=== PATIENT | female | born 1950 | race Caucasian/White ===

== ENCOUNTER 2019-08-24 06:08 | Inpatient (IN) ==
[~2019-08-24 06:08] MED LIST: Ipratropium/Albuterol Neb 3 ML IH ONE; Vancomycin 1,000 MG, Sodium Chloride IRRigation 1,000 ML IR ONE
[2019-08-24] MEDS ORDERED: Clindamycin 900 MG/50 ML 900 MG/50 ML IV.SOLN IVPB ONE (06:27)
[2019-08-24] MEDS ORDERED: Ringers Solution, Lactated 1,000 ML IVC SCH ×2 (06:30→11:15)
[2019-08-24] MEDS ORDERED: Ondansetron 4 MG/2 ML VIAL ONE ×2 (06:52→07:26)
[2019-08-24] MEDS ORDERED: *HR* FentaNYL (PF) 100 MCG/2 ML VIAL ONE ×2 (06:52→07:30)
[2019-08-24] MEDS ORDERED: *HR* Propofol 200 MG/20 ML VIAL IVP ONE ×2 (06:52→09:44)
[2019-08-24] MEDS ORDERED: Lidocaine -MPF 2% 2 ML VIAL ONE (06:52)
[2019-08-24] MEDS ORDERED: Dexamethasone 4 MG/ML VIAL ONE ×2 (06:52→07:26)
[2019-08-24] MEDS ORDERED: *HR* Rocuronium Bromide 50 MG/5 ML VIAL ONE ×2 (06:58→07:26)
[2019-08-24] MEDS ORDERED: *HR* Succinylcholine 200 MG/10 ML VIAL IVP ONE (06:59)
[2019-08-24] MEDS ORDERED: Albuterol 2.5 MG/3 ML NEBULIZER IH PRN (07:09)
[2019-08-24] MEDS ORDERED: Heparin 1,000 UNITS/500 mL 1,500 ML ONE (07:14)
[2019-08-24] MEDS ORDERED: NiCARdipine 2.5 MG/10 ML Syringe IVPB ONE (07:22)
[2019-08-24] MEDS ORDERED: Vancomycin 1,000 MG VIAL ONE (07:25)
[2019-08-24] MEDS ORDERED: *HR* Etomidate 40 MG/20 ML VIAL IVP ONE (07:27)
[2019-08-24] MEDS ORDERED: *HR* Heparin 5,000 UNIT/ML VIAL ONE (07:27)
[2019-08-24] MEDS ORDERED: Heparin 1,000 UNITS/500 mL 500 ML ONE (07:27)
[2019-08-24] MEDS ORDERED: *HR* PHENYLEPHRINE 1,000 MCG/10 ML SYRINGE IVP ONE ×2 (07:27→10:23)
[2019-08-24] MEDS ORDERED: *HR* Midazolam HCl 5 MG/5 ML VIAL IVP ONE (07:30)
[2019-08-24 08:59] LABS: ABG Base Excess -2 mEq/L (-2 to 3); ABG Chloride 107 mEq/L (98-107); ABG Glucose 109 mg/dL (60-95); ABG HCO3 23 mEq/L (21-27); ABG Ionized Calcium 1.19 mmol/L (1.15-1.35); ABG Oxygen Saturation 99 % (95-98); ABG PCO2 40 mmHg (35-45); ABG PH 7.37 pH Units (7.32-7.45); ABG PO2 121 mmHg (85-104); ABG TCO2 24 mEq/L (20-26)
[2019-08-24] MEDS ORDERED: *HR* FentaNYL (PF) 100 MCG/2 ML VIAL IVP PRN (11:13)
[2019-08-24] MEDS ORDERED: *HR* OxyCODONE Immed Rel 5 MG TABLET PO PRN ×3 (11:13→12:09)
[2019-08-24] MEDS ORDERED: Ondansetron 4 MG/2 ML VIAL IVP ONE (11:13)
[2019-08-24] MEDS ORDERED: *HR* HYDROcodone/Acet 5/325 mg TABLET PO PRN (12:09)
[2019-08-24] MEDS ORDERED: Acetaminophen 325 MG TABLET PO PRN ×2 (12:09)
[2019-08-24] MEDS ORDERED: Naloxone 0.4 MG/ML INJ IVP PRN (12:09)
[2019-08-24] MEDS ORDERED: 0.9 % Sodium Chloride 1,000 ML IVC SCH (12:09)
[2019-08-24] MEDS ORDERED: *HR* Labetalol 20 MG/4 ML SYRINGE IVP PRN (12:09)
[2019-08-24] MEDS ORDERED: HydrOXYzine SYP 10 MG/5 ML UDC PO PRN (12:09)
[2019-08-24] MEDS ORDERED: Ondansetron 4 MG/2 ML VIAL IVP PRN (12:09)
[2019-08-24] MEDS: Aspirin Enteric Coated 81 MG Tablet PO SCH (13:35)
[2019-08-24] MEDS: *HR* Metoprolol 5 MG/5 ML VIAL IVP SCH ×2 (13:35→17:09)
[2019-08-24] MEDS: FLUoxetine 20 MG CAPSULE PO SCH (13:35)
[2019-08-24] MEDS ORDERED: Clindamycin 900 MG/50 ML 900 MG/50 ML IV.SOLN IVPB SCH (16:00)
[2019-08-24] MEDS: *HR* HYDROcodone/Acet 5/325 mg TABLET PO PRN (21:16)
[2019-08-25] MEDS: *HR* Metoprolol 5 MG/5 ML VIAL IVP SCH ×2 (00:03→06:07)
[2019-08-25 04:22] LABS: Basophils % 0.1 %; Hemoglobin 10.4 g/dL (11.5-15.4); Immature Granulocytes % 0.4 % (0-4); Lymphocytes # 1.5 K/mcL (0.6-4.6); Lymphocytes % 11.3 %; Mean Corpuscular HGB Conc 32.5 g/dL (31.6-35.5); Mean Corpuscular Hemoglobin 30.1 pg (28.0-33.3); Mean Corpuscular Volume 92.8 fL (83.0-100.0); Mean Platelet Volume 10.2 fL (9.4-12.4); Monocytes % 7.6 %; Neutrophils # 10.9 K/mcL (1.6-8.9); Platelet Count 232 K/mcL (140-400); Red Blood Count 3.45 M/mcL (3.82-4.97); Red Cell Distribution Width 14.4 % (11.5-14.5); Segmented Neutrophils % 80.6 %; White Blood Count 13.5 K/mcL (4.3-11.1)
[2019-08-25 04:39] LABS: BUN/Creatinine Ratio 19 (6-26); Blood Urea Nitrogen 11 mg/dL (8-23); Calcium 8.2 mg/dL (8.6-10.3); Carbon Dioxide 23 mEq/L (23-29); Chloride 110 mEq/L (98-107); Glucose 118 mg/dL (70-105); Osmolality,Calculated 282 (280-300); Potassium 4.1 mEq/L (3.5-5.1); Sodium 136 mEq/L (136-145); eGFR For African Americans > 60 (> 60); eGFR For Non-African Americans > 60 (> 60)
[2019-08-25] MEDS ORDERED: *HR* Heparin 5,000 UNIT/ML VIAL SQ SCH ×2 (06:00)
[2019-08-25] MEDS: *HR* HYDROcodone/Acet 5/325 mg TABLET PO PRN (06:17)
[2019-08-25] MEDS: Aspirin Enteric Coated 81 MG Tablet PO SCH (07:23)
[2019-08-25] MEDS: FLUoxetine 20 MG CAPSULE PO SCH (07:23)
[2019-08-25] MEDS ORDERED: Ketorolac 30 MG/ML VIAL IVP ONE (07:57)
[2019-08-25 09:30] VITALS: BP 107/63
== END 2019-08-25 10:50 | disposition home or self-care (01) | DRG 253 ==
LOC: SAMDAY 06:08 → 2NNU 11:53
PROVIDERS: ADMIT Surgery; ATTEND Surgery